=== PATIENT | female | born 1955 | race Asian ===

== ENCOUNTER 2024-12-08 08:35 | Outpatient (AMB) | payer MEDICAID, SELFPAY ==
--- OUTSIDE RECORDS SUMMARY | 2024-12-08 08:45 | XMS_ITS | Encounter Summary ---
Author Organization [facility] Address [address] [place] [phone] Care Team Providers Care Carpentry Instructor Name Role Phone Zia Hurd MD Primary Care Provider [phone] Reason for Visit * Reason Onset Date Comments Form: DMV 12/06/2024 Encounter Details Date Type Department Care Team (Late st Contact Info) Description 12/06/2024 Telephone Internal Medicine [facility] [address] [phone] Zia Hurd MD [address] [address] Form: DMV Social History Tobacco Use Types Packs/Day Years Used Date Smoking Tobacco: Never Smokeless Tobacco: Never Comments Unknown Sex and Gender Information Value Date Recorded Sex Assigned at Not on file Legal Sex Female 1:42 AM EST Gender Identity Not on file Sexual Orientation Not on file documented as of this encounter Progress Notes * Helen Martinez MA - 12/07/2024 9:28 AM EDT Placed in providers folder for signature. * Seema Blanchard - 12/06/2024 1:12 PM EDT DMV Last PCP: 09/21/24 documented in this encounter Plan of Treatment Upcoming Encounters Date Type Department Care Team (Late st Contact Info) Description 12/20/2024 8:30 AM EDT Office Visit Internal Medicine [facility] [address] [phone] Radha Palacio NP [address] [address] 02/20/2025 9:00 AM EDT Office Visit Endocrinology - [address] [phone] Shalini Hoff MD [address] [place] [address] documented as of this encounter Visit Diagnoses Not on filedocumented in this encounter Care Teams Carpentry Instructor Relationship Specialty Start Date End Date Zia Hurd MD [address] [address] PCP - General Internal Medicine 10/21/18 documented as of this encounter
--- NOTE | 2024-12-08 09:04 | MHC.OFFVIS ---
Intake Visit Reasons: results Allergies No Known Allergies Allergy (Verified 12/07/24 22:06) HPI Comments Details: 69 yo woman with HTN was here with c/o of weakness, loss of balance, and falling. It was going on for a year or two. Her memory was also affected. NO delusions or hallucinations. Her exam revealed bilateral hyperreflexia with flexor planters. She was using a walker for ambulation. 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 [facility] Medical History (Updated 12/08/24 @ 09:15 by Clarence Pittman MD) RLS (restless legs syndrome) GERD (gastroesophageal reflux disease) HLD (hyperlipidemia) Hypertension Multifactorial gait disorder Cerebral microvascular disease Peripheral neuropathy Review of Systems Const Details: Constitutional:?No fever, chills, fatigue, weight loss, or night sweats. HEENT:?No headache, vision changes, hearing loss, nasal congestion, sore throat. Neurological:? Difficulty walking and balancing Psychiatric:?No anxiety, depression, mood swings, sleep disturbance, or hallucinations. Endocrine:?No heat/cold intolerance, polydipsia, polyuria, or hair/skin changes. Hematologic/Lymphatic:?No easy bruising, bleeding, or lymphadenopathy. Integumentary (Skin):?No rash, lesions, itching, or color changes. ? Physical Exam Neuro Other: Mental Status: Alert and oriented to person, place, and time. Normal attention. Normal spontaneous speech, fluency, and comprehension. No obvious issues with mood and memory. Affect is appropriate. Cranial Nerves: CN II: Visual coronel full to confrontation, visual acuity intact. CN III, IV, : Pupils equal, round, reactive to light and accommodation. Extraocular movements are normal. CN V: Facial sensation is normal. CN VII: Facial movements symmetrical. CN VIII: Hearing intact to bedside conversation is normal. CN IX, X: Palate elevates symmetrically. CN XI: Shoulder shrug and head turn symmetrical. CN XII: Tongue midline without atrophy or fasciculations. Reflexes: Deep tendon reflexes especially in the knees were on brisk side with flexor plantars. Coordination: [id number] was okay. Gait and Station: Slow and cautious gait with a walker. Extrapyramidal: Full facial expressions and blinking. No rigidity. Movements are appropriate with no tremor or abnormality. Speech: Normal; no dysarthria or tremor. 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
== END 2024-12-08 09:26 | disposition home or self-care (01) ==
PROVIDERS: PCP Internal Medicine; Visit Provider Psychiatry & Neurology Neurology
DX: R26.89 Other abnormalities of gait and mobility (principal); I67.5 Moyamoya disease
CPT/HCPCS: 99204

== ENCOUNTER → 2024-12-08 08:35 | Outpatient (BNVA) | payer MEDICAID, SELFPAY | PROVIDERS: PCP Internal Medicine; Visit Provider Psychiatry & Neurology Neurology | DX: R26.89 Other abnormalities of gait and mobility (principal); I67.5 Moyamoya disease | CPT/HCPCS: 99202 ==

== ENCOUNTER 2025-02-06 07:55 | Outpatient (REF) | payer MEDICAID, SELFPAY ==
--- NOTE | ~2025-02-06 | CT_ITS ---
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 3D Post-processing. Comparison: None Findings: CTA head: The left M1 is occluded. Several small caliber central collateral vessels are noted. The right M1 is patent. The anterior cerebral artery is patent bilaterally. Basilar and posterior circulation, within normal limits. No dissection or aneurysm. The intracranial segments of the internal carotid arteries are patent bilaterally. Intradural vertebral arteries are patent. No abnormal postcontrast enhancement. CTA neck: There is a normal branching pattern of the aortic arch. The right common, internal and external carotid arteries are patent with no significant stenosis. The left common, internal and external carotid arteries are patent with no significant stenosis. The vertebral arteries are patent. Ovoid intensely enhancing soft tissue within the right sublingual region, likely ectopic thyroid. Additional lobular enhancing midline tissue the expected region of the isthmus also likely ectopic thyroid. 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 Asymmetrically decreased left-sided MCA distribution filling. This appearance is consistent with the stated history of moyamoya and presumably the M1 occlusion is chronic however there is no comparison imaging reportedly available. Recommendation would be to obtain the outside imaging to confirm stability of said appearance. Ectopic thyroid tissue. Additional incidental findings. This document has been electronically signed by: Andi Webb MD on 02/07/2025 10:59:07
--- OUTSIDE RECORDS SUMMARY | 2025-02-06 07:58 | XMS_ITS | Clinical Summary ---
Author Organization 175 [facility] Address [address] [place] [address] Phone Care Team Providers Care Geotechnicial Properties Technician Name Role Phone Zia Hurd MD Primary Care Provider [phone] Allergies No known active allergies Medications fluticasone (Flonase Sensimist) 27.5 mcg/actuation nasal spray Administer 2 sprays into affected nostril(s) 1 (one) time each day. 10/19/19 24 Active sucralfate (CARAFATE) 1 gram tablet TAKE 1 TABLET BY MOUTH 4 TIMES DAILY FOR 360 DAYS. 06/26/19 22 Active tiZANidine (ZANAFLEX) 2 mg tabletIndicati ons:Muscle spasm TAKE 1 TABLET BY MOUTH AT BEDTIME NEEDED FOR MUSCLE SPASMS. 90 tablet 1 12/22/19 25 Active rOPINIRole (REQUIP) 0.5 mg tablet TAKE 1 TABLET BY MOUTH DAILY BEFORE DINNER. 90 tablet 1 01/10/20 25 Active naproxen (EC NAPROSYN) 500 mg EC tabletIndicati ons:osteoarthr itis,pain Take 1 tablet (500 mg total) by mouth 2 (two) times a day if needed for mild pain. Do not crush, chew, or split. Take with food. 60 tablet 11 01/17/20 25 Active amLODIPine (NORVASC) 10 mg tablet Take 1 tablet (10 mg total) by mouth 1 (one) time each day. 90 tablet 1 01/17/20 25 Active labetaloL (NORMODYNE) 100 mg tablet Take 1 tablet (100 mg total) by mouth 2 (two) times a day. 180 tablet 1 01/17/20 25 Active losartan (COZAAR) 100 mg tablet Take 1 tablet (100 mg total) by mouth 1 (one) time each day. 90 tablet 1 01/17/20 25 Active meclizine (ANTIVERT) 12.5 mg tabletIndicati ons:Benign paroxysmal positional vertigo, unspecified laterality Take 1 tablet (12.5 mg total) by mouth 3 (three) times a day if needed for dizziness. 30 tablet 01/17/20 25 026 Active atorvastatin (LIPITOR) 10 mg tablet Take 1 tablet (10 mg total) by mouth 1 (one) time each day. 90 tablet 3 01/17/20 25 Active pantoprazole (PROTONIX) 40 mg EC tablet Take 1 tablet (40 mg total) by mouth 2 (two) times a day. Take on empty stomach, wait 30 mins and then eat to activate the medication before breakfast and supper 60 each 01/17/20 026 Active cholecalcifero l (VITAMIN D-3) 25 mcg (1,000 unit) tablet Take 1 tablet (1,000 Units total) by mouth 1 (one) time each day. 90 tablet 3 01/17/20 25 Active cholecalcifero l (VITAMIN D-3) 25 mcg (1,000 unit) tablet Take 1 tablet (1,000 Units total) by mouth 1 (one) time each day. 07/16/19 025 Discontinued(Re order) rOPINIRole (REQUIP) 0.5 mg tablet TAKE 1 TABLET BY MOUTH DAILY BEFORE DINNER. 90 tablet 1 07/11/19 25 025 Discontinued losartan (COZAAR) 100 mg tablet TAKE 1 TABLET BY MOUTH EVERY DAY 90 tablet 1 07/11/19 25 025 Discontinued pantoprazole (PROTONIX) 40 mg EC tablet Take 1 tablet (40 mg total) by mouth 2 (two) times a day. Take on empty stomach, wait 30 mins and then eat to activate the medication before breakfast and supper 60 each 07/21/19 25 025 Discontinued(Re order) atorvastatin (LIPITOR) 10 mg tablet Take 1 tablet (10 mg total) by mouth 1 (one) time each day. 90 tablet 3 08/02/19 25 025 Discontinued(Re order) meclizine (ANTIVERT) 12.5 mg tabletIndicati ons:Benign paroxysmal positional vertigo, unspecified laterality Take 1 tablet (12.5 mg total) by mouth 3 (three) times a day if needed for dizziness. 30 tablet 11 09/21/19 25 025 Discontinued(Re order) labetaloL (NORMODYNE) 100 mg tablet TAKE 1 TABLET BY MOUTH TWICE A DAY 180 tablet 1 10/12/19 25 025 Discontinued(Re order) amLODIPine (NORVASC) 10 mg tablet TAKE 1 TABLET BY MOUTH 1 TIME EACH DAY. 90 tablet 1 12/22/19 25 025 Discontinued(Re order) losartan (COZAAR) 100 mg tablet TAKE 1 TABLET BY MOUTH EVERY DAY 90 tablet 1 01/10/20 25 025 Discontinued(Re order) Active Problems Problem Noted Date Diagnosed Date Primary hypertension 09/20/2024 Hyperlipidemia 09/20/2024 Gastroesophageal reflux disease without esophagi tis 09/20/2024 At risk for falls 09/20/2024 Encounters Date Type Department Care Team Description 01/16/2025 8:30 AM EDT Office Visit Internal Medicine [address] [phone] Radha Palacio NP Primary hypertension (Primary Dx); Pure hypercholesterolemia; Gastroesophageal reflux disease without esophagitis; Elevated TSH; Generalized weakness; Memory loss; At moderate risk for fall; Tremor of both hands; Benign paroxysmal positional vertigo, unspecified laterality; Muscle spasm; Arthralgia, unspecified joint 12/16/2024 Telephone Internal Medicine [address] [phone] Zia Hurd MD 12/06/2024 Telephone Internal Medicine [address] [phone] Zia Hurd MD 11/16/2024 7:24 AM EDT - 11/16/2024 11:59 PM EDT Hospital Encounter [facility] MRI [address] [place] [phone] Other abnormalities of gait and mobility Discharge Disposition: Home or Self Care from Last 3 Months Social History Tobacco Use Types Packs/Day Years Used Date Smoking Tobacco: Never Smokeless Tobacco: Never Tobacco Cessation:Counseling Given: Not Answered Comments Unknown Sex and Gender Information Value Date Recorded Sex Assigned at Not on file Legal Sex Female 1:42 AM EST Gender Identity Not on file Sexual Orientation Not on file Obstetrics History Last Filed Vital Signs Vital Sign Reading Time Taken Comments Blood Pressure 142/81 01/16/2025 8:27 AM EDT Pulse 69 01/16/2025 8:27 AM EDT Temperature 36.6 C (97.8 F) 01/16/2025 8:27 AM EDT Respiratory Rate - - Oxygen Saturation 98% 01/16/2025 8:27 AM EDT Inhaled Oxygen Concentration - - Weight 66.3 kg (146 lb 3.2 oz) 01/16/2025 8:27 A M EDT Height 149.9 cm (4' 11 ) 01/16/2025 8:27 AM EDT Body Mass Index 29.53 01/16/2025 8:27 AM EDT Plan of Treatment Upcoming Encounters Date Type Department Care Team (Late st Contact Info) Description 02/20/2025 9:00 AM EDT Office Visit Endocrinology [address] [phone] Shalini Hoff MD [address] [place] [address] 03/02/2025 8:15 AM EDT Office Visit Internal Medicine - [place] [address] [phone] Zia Hurd MD 175 [facility] [address] [place] [address] Health Maintenance Due Date Last Done Comments Pneumococcal Vaccine: 50+ Years (2 of 2 - PPSV23) 01/13/2021 01/14/2020 Zoster Vaccines (3 of 3) 10/09/2021 08/14/2021, 11/2014 Falls Risk Assessment 05/10/2022 Hepatitis C Screening 05/10/2022 Osteoporosis Screening (Bone Density Screening) 05/10/2022 Social Influencers of Health Screening 05/10/2022 Depression Screening 06/01/2024 COVID-19 Vaccine ( season) 2025 08/14/2021, 01/15/2021, 09/04/2020, Additional history exists Influenza Vaccine (#1) 2025 , 02/06/2021, 03/26/2020, Additional history exists Hypertension/CHF/CAD Annual BMP Blood Test 06/27/2025 06/27/2024, 07/28/2023 Breast Cancer Screening 10/28/2025 10/29/19, 10/29/2023, 11/22/2018 DTaP,Tdap,and Td Vaccines (3 - Td or Tdap) 05/18/2029 05/18/2019, 11/20/2008 RSV Immunization Adult Patients (1 - 1-dose 75+ series) 2029 Cholesterol Screening (Lipid Panel) 06/27/2029 06/27/2024, 07/28/2023 Colorectal Cancer Screening: Colonoscopy 10/20/2033 10/21/2023 Hepatitis A Vaccines Aged Out 04/27/2013 No long er eligible based on patient's age to complete this topic HIB Vaccines Aged Out No longer eligi ble based on patient's age to complete this topic HPV Vaccines Aged Out No longer eligi ble based on patient's age to complete this topic Hepatitis B Vaccines Aged Out No long er eligible based on patient's age to complete this topic IPV Vaccines Aged Out No longer eligi ble based on patient's age to complete this topic MMR Vaccines Aged Out No longer eligi ble based on patient's age to complete this topic Meningococcal ACWY Vaccine Aged Out N o longer eligible based on patient's age to complete this topic Meningococcal B Vaccine Aged Out No l onger eligible based on patient's age to complete this topic RSV Immunization Patients Under 20 months Aged Out No longer eligible based on patient's age to complete this topic Varicella Vaccines Aged Out No longer eligible based on patient's age to complete this topic Procedures Procedure Name Priority Date/Time Associated Diagnosis Comments MR BRAIN WO CONTRAST Routine 11/16/2024 8:18 AM EDT Other abnormalities of gait and mobility COMPREHENSIVE METABOLIC PANEL Routine 06/27/2024 8:10 AM EST Primary hypertension Pure hypercholesterolemia Hypothyroidism, unspecified type LIPID PANEL WITH REFLEX TO DIRECT LDL Routine 06/27/2024 8:10 AM EST Primary hypertension Pure hypercholesterolemia Hypothyroidism, unspecified type RM SCREENING DIGITAL Routine 10/29/2023 9:12 AM EDT HM COLONOSCOPY Routine 10/21/2023 from Last 3 Months or Most Recently Relevant to Health Maintenance Results * MR Brain wo Contrast (11/16/2024 8:18 AM EDT) Anatomical Region Laterality Modality Head and Neck Magnetic Resonan ce 11/16/2024 2:09 PM EDT Impressions 11/16/2024 2:39 PM EDT No acute infarct, mass, or intracranial hemorrhage. 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 Further evaluation recommended with CTA of the head and neck. -------- FINAL REPORT -------- Dictated By: JULIAN BARR Dictated Date: 11/16/2024 14:09 ET Assigned Physician: JULIAN BARR Reviewed and Electronically Signed By: JULIAN BARR Signed Date: 11/16/2024 14:39 ET Workstation ID: [id number] Transcribed By: Self Edit Transcribed Date: 11/16/2024 14:09 ET Narrative 11/16/2024 2:39 PM EDT PROCEDURE: Brain MRI INDICATION: Gait disorder TECHNIQUE: Multiplanar, multisequence MRI of the brain Without contrast. COMPARISON: No priors available. FINDINGS: No acute infarct, mass effect, or intracranial hemorrhage. Brain parenchyma is normal in signal. No abnormal intracranial susceptibility artifact. Sella and foramen magnum are normal. Ventricles, sulci, and cisterns are normal. No hydrocephalus. There is a small left supraclinoid internal carotid artery flow void with multiple collateral flow voids in the left sylvian fissure. The left high cervical internal carotid artery flow void is small. The remainder of the intracranial arterial flow voids are within normal limits. Mucosal thickening in the left maxillary sinus. Remainder the sinuses and mastoid air cells are clear. Bilateral lens implants. Orbits and extra cranial soft tissues are otherwise unremarkable. Calvarium is normal. Procedure Note Julian Barr MD - 11/16/2024 PROCEDURE: Brain MRI INDICATION: Gait disorder TECHNIQUE: Multiplanar, multisequence MRI of the brain Without contrast. COMPARISON: No priors available. FINDINGS: No acute infarct, mass effect, or intracranial hemorrhage. Brain parenchyma is normal in signal. No abnormal intracranialsusceptibility artifact. Sella and foramen magnum are normal. Ventricles, sulci, and cisterns are normal. No hydrocephalus. There is a small left supraclinoid internal carotid artery flow void withmultiple collateral flow voids in the left sylvian fissure. The left highcervical internal carotid artery flow void is small. The remainder of theintracranial arterial flow voids are within normal limits. Mucosal thickening in the left maxillary sinus. Remainder the sinuses andmastoid air cells are clear. Bilateral lens implants. Orbits and extra cranial soft tissues areotherwise unremarkable. Calvarium is normal. IMPRESSION: No acute infarct, mass, or intracranial hemorrhage. Abnormal left internal carotid artery flow void with multiple collateralarteries in the left sylvian fissure raising the possibility of moyamoyaphenomenon or chronic left supraclinoid internal carotid artery occlusion.Further evaluation recommended with CTA of the head and neck. -------- FINAL REPORT -------- Dictated By: JULIAN BARR Dictated Date: 11/16/2024 14:09 ET Assigned Physician: JULIAN BARR Reviewed and Electronically Signed By: JULIAN BARR Signed Date: 11/16/2024 14:39 ET Workstation ID: [id number] Transcribed By: Self Edit Transcribed Date: 11/16/2024 14:09 ET Clarence Pittman MD [facility] [place] PROCEDURES Final Re sult * (ABNORMAL) Lipid panel with reflex to direct LDL (06/27/2024 8:10 AM EST) [facility] Cholesterol 198 0 - 200 mg/dL LAB CHEMISTRY METHOD 06/27/2024 10:17 AM EST [facility] Triglycerides 150 0 - 150 mg/dL LAB CHEMISTRY METHOD 06/27/2024 10:17 AM [facility] HDL 61 >=40 mg/dL LAB CHEMISTRY METHOD 06/27/2024 10:17 AM [facility] LDL Calculated 107(H) 0 - 100 mg/dL LAB CHEMISTRY METHOD 06/27/2024 10:17 AM [facility] VLDL Cholesterol Carloz 30 mg/dL LAB CHEMISTRY METHOD 06/27/2024 10:17 AM [facility] Non HDL Chol. (LDL+VLDL) 137 <145 mg/dL LAB CHEMISTRY METHOD 06/27/2024 10:17 AM [facility] Chol/HDL Ratio 3.2 0.0 - 4.4 LAB CHEMISTRY METHOD 06/27/2024 10:17 AM [facility] Blood Venous blood specimen / Unknown Venipuncture / Unknown 06/27/2024 8:10 AM EST 06/27/2024 8:10 AM EST us Zia Hurd MD LAB BLOOD ORDERABLES Final Resul t [facility] [address] [place] [address], * Comprehensive metabolic panel (06/27/2024 8:10 AM EST) Sodium 138 133 - 145 mmol/L LAB CHEMISTRY METHOD 06/27/2024 10:17 AM [facility] Potassium 4.0 3.5 - 5.5 mmol/L LAB CHEMISTRY METHOD 06/27/2024 10:17 AM [facility] Chloride 105 96 - 110 mmol/L LAB CHEMISTRY METHOD 06/27/2024 10:17 AM [facility] CO2 29 21 - 32 mmol/L LAB CHEMISTRY METHOD 06/27/2024 10:17 AM [facility] Anion Gap 4 3 - 11 LAB CHEMISTRY METHOD 06/27/2024 10:17 AM [facility] Glucose 97 70 - 100 mg/dL LAB CHEMISTRY METHOD 06/27/2024 10:17 AM [facility] BUN 15 5 - 25 mg/dL LAB CHEMISTRY METHOD 06/27/2024 10:17 AM [facility] Creatinine 0.79 0.50 - 1.10 mg/dL LAB CHEMISTRY METHOD 06/27/2024 10:17 AM [facility] eGFR 81 >=60 mL/min/1. 73m2 LAB CHEMISTRY METHOD 06/27/2024 10:17 AM [facility] Comment:Calculation based on the Chronic Kidney Disease Epidemiology Collaboration (CKD-EPI) equation refit without adjustment for race. BUN/Creatinine Ratio 19.0 LAB CHEMISTRY METHOD 06/27/2024 10:17 AM [facility] Calcium 8.7 8.5 - 10.5 mg/dL LAB CHEMISTRY METHOD 06/27/2024 10:17 AM [facility] AST (SGOT) 17 10 - 42 unit/L LAB CHEMISTRY METHOD 06/27/2024 10:17 AM [facility] ALT (SGPT) 19 10 - 60 unit/L LAB CHEMISTRY METHOD 06/27/2024 10:17 AM [facility] Alkaline Phosphatase 58 42 - 121 unit/L LAB CHEMISTRY METHOD 06/27/2024 10:17 AM [facility] Total Protein 7.9 6.0 - 8.0 g/dL LAB CHEMISTRY METHOD 06/27/2024 10:17 AM [facility] Albumin 3.9 3.2 - 5.0 g/dL LAB CHEMISTRY METHOD 06/27/2024 10:17 AM [facility] Total Bilirubin 0.7 0.0 - 1.4 mg/dL LAB CHEMISTRY METHOD 06/27/2024 10:17 AM [facility] Blood Venous blood specimen / Unknown Venipuncture / Unknown 06/27/2024 8:10 AM EST 06/27/2024 8:10 AM EST us Zia Hurd MD LAB BLOOD ORDERABLES Final Resul t [facility] [address] [place] [address], * [facility] SCREENING DIGITAL (10/29/2023 9:12 AM EDT) Anatomical Region Laterality Modality Mammography 10/29/2023 7:13 AM EDT Narrative 10/29/2023 9:12 AM EDT [facility] Diagnostic Imaging Department [address] [place] [address] Patient: CARLAJESSIE /Age/Sex: 1955 - 68 - F Unit#: [id number] Location/Status: [facility] Mnemonic/Ordering Site: [facility] Ordering Physician: ZIA HURD MD [facility] Screening Digital - 10/29/23736 Report Status:Signed EXAM: [facility] Screening Digital EXAM DATE AND TIME: 10/29/2023 7:37 AM HISTORY: Screening. COMPARISON: 11/22/18 TECHNIQUE: Bilateral digital breast tomosynthesis was performed in the CC and MLO projections. Computer aided detection with Traklight 3D 3.1 was employed. TISSUE DENSITY: b. There are scattered areas of fibroglandular density. FINDINGS: No suspicious masses, grouped microcalcifications, or areas of architectural distortion are seen. Vascular calcification is present. The skin is unremarkable. IMPRESSION: Stable mammographic appearance of the breasts. No evidence of malignancy is seen. A negative mammogram in the presence of a clinically suspicious palpable abnormality does not preclude the possibility of malignancy or alter the indications for biopsy. BI-RADS: Category 2: Benign RECOMMENDATION(S): 1: Routine screening mammogram BILATERAL in 1 year. Dictating Physician: REMA IVY MD Electronically Signed by: REMA IVY MD Dic Date/Time: 10/29/23911 Sign date/Time: 10/29/23911 Procedure Note Rema Ivy MD - 01/18/2024 [facility] Diagnostic Imaging Department [address] [place] [id number] Patient: SARAH AGUIRREU /Age/Sex: 1955 - 68 - F Unit#: [id number] Location/Status: [facility] CLI Mnemonic/Ordering Site: [facility] Ordering Physician: ZIA HURD MD [facility] Screening Digital - 10/29/23736 Report Status:Signed EXAM: [facility] Screening Digital EXAM DATE AND TIME: 10/29/2023 7:37 AM HISTORY: Screening. COMPARISON: 11/22/18 TECHNIQUE: Bilateral digital breast tomosynthesis was performed in the CCand MLO projections. Computer aided detection with iCAD ProFound AI 3D 3.1was employed. TISSUE DENSITY: b. There are scattered areas of fibroglandular density. FINDINGS: No suspicious masses, grouped microcalcifications, or areas ofarchitectural distortion are seen. Vascular calcification is present. The skin is unremarkable. IMPRESSION: Stable mammographic appearance of the breasts. No evidence of malignancyis seen. A negative mammogram in the presence of a clinically suspicious palpable abnormality does not preclude the possibility of malignancy or alter the indications for biopsy. BI-RADS: Category 2: Benign RECOMMENDATION(S): 1: Routine screening mammogram BILATERAL in 1 year. Dictating Physician: REMA IVY MD Electronically Signed by: REMA IVY MD Dic Date/Time: 10/29/23911 Sign date/Time: 10/29/23911 Zia Hurd MD IMG BI PROCEDURES Final Result * Colonoscopy (10/21/2023) Colonoscopy no interpretation , abstracted Anatomical Region Laterality Modality Other Historical Provider HEALTH MAINTENANCE Final Result from Last 3 Months or Most Recently Relevant to Health Maintenance Insurance MEDICAID - [place] Care Teams Geotechnicial Properties Technician Relationship Specialty Start Date End Date Zia Hurd MD [address] [address] PCP - General Internal Medicine 10/21/18
[2025-02-06] MEDS: iohexoL 350 MG/ML 100 ML INFUS..BTL IV (09:04)
[2025-02-07 07:11] LABS: Creatinine POC 0.7 mg/dL (0.5-1.4); GFR POC > 60
== END 2025-02-06 07:56 | disposition home or self-care (01) ==
LOC: HO.CT 07:55
PROVIDERS: PCP Internal Medicine; Visit Provider Psychiatry & Neurology Neurology
DX: I67.5 Moyamoya disease (principal)
CPT/HCPCS: 70496; 70498; 82565; Q9967

== ENCOUNTER → 2025-02-06 07:57 | Outpatient (BNV) | payer MEDICAID, SELFPAY | PROVIDERS: PCP Internal Medicine; Visit Provider Radiology Vascular & Interventional Radiology | DX: I66.02 Occlusion and stenosis of left middle cerebral artery (principal) | CPT/HCPCS: 70496; 70498 ==